=== PATIENT | female | born 1985 ===

== ENCOUNTER → 2016-12-06 | Outpatient (CLI) | payer BC ==
[2016-12-06 12:18] LABS: Glucose 3 Hour, Gest 77 mg/dL
== END | disposition home or self-care (01) ==
LOC: LABWHC1 07:29
PROVIDERS: ATTEND Obstetrics & Gynecology
DX: O99.810 Abnormal glucose complicating pregnancy (principal); Z3A.00 Weeks of gestation of pregnancy not specified
CPT/HCPCS: 36415; 82951; 82952

== ENCOUNTER 2017-02-07 06:27 | Inpatient (IN) | payer BC ==
[2017-02-07 06:51] LABS: Glucose,Whole Blood 111 mg/dL (75-99)
[2017-02-07] MEDS ORDERED: CARBOPROST TROMETHAMINE 250 MCG/ML 1 ML AMP IM PRN (07:49)
[2017-02-07] MEDS ORDERED: METHYLERGONOVINE 0.2 MG/ML 1 ML AMP IM PRN (07:49)
[2017-02-07] MEDS ORDERED: LIDOCAINE 1% (PF) 10 MG/ML (30 ML SDV) SQ PRN (07:49)
[2017-02-07] MEDS ORDERED: TERBUTALINE 1 MG/ML VIAL SQ PRN (07:49)
[2017-02-07] MEDS ORDERED: OXYTOCIN 10 UNIT/ML 1 ML VIAL IM PRN (07:49)
[2017-02-07] MEDS ORDERED: PENICILLIN G POTASSIUM 5,000,000 UNIT in DEXTROSE 5% IN WATER 100 ML IV STA ×2 (07:59)
[2017-02-07] MEDS ORDERED: OXYTOCIN 30 UNITS/500 ML NS 30 UNIT in SALINE 1 500ML.BAG IV SCH (08:00)
[2017-02-07 08:24] LABS: Basophils # (A) 0.1 k/uL (0-0.2); Basophils % (A) 0 %; CH 25.6; CHCM 32.2; Eosinophils # (A) 0.1 k/uL (0-0.7); Eosinophils % (A) 1 %; HCT 36.5 % (34.0-46.0); HDW 3.15; HGB 12.2 gm/dL (11.4-16.0); Hypochromasia Slight; Luc # (Auto) 0.17; Luc % (Auto) 2; Lymphocytes # (A) 1.3 k/uL (1.0-4.8); Lymphocytes % (A) 12 %; MCH 26.6 pg (25.0-35.0); MCHC 33.4 g/dL (31.0-37.0); MCV 79.7 fL (80.0-100.0); Mean Platelet Volume 8.4; Monocytes # (A) 0.4 k/uL (0-1.0); Monocytes % (A) 4 %; Neutrophils # (A) 9.2 k/uL (1.3-7.7); Neutrophils % (A) 82 %; RBC 4.58 m/uL (3.80-5.40); RDW 15.6 % (11.5-15.5); WBC 11.2 k/uL (3.8-10.6); WBC (Perox) 12.23
[2017-02-07 08:25] VITALS: BMI 41.9
[2017-02-07 08:39] LABS: Glucose,Whole Blood 97 mg/dL (75-99)
[2017-02-07] MEDS ORDERED: BUPIVACAINE (PF) 0.25% 30 ML VIAL ONE ×2 (10:03)
[2017-02-07] MEDS ORDERED: SODIUM CHLORIDE 0.9% 100 ML BAG ONE ×2 (10:03)
[2017-02-07] MEDS ORDERED: fentaNYL (PF) 50 MCG/ML 5 ML AMP ONE ×2 (10:03)
[2017-02-07] MEDS: LACTATED RINGERS 1,000 ML IV SCH ×2 (10:35→20:29)
[2017-02-07 10:41] LABS: Glucose,Whole Blood 83 mg/dL (75-99)
--- NOTE | 2017-02-07 10:59 | P.HPOB ---
History of Present Illness H&P Date: 02/07/17 Chief Complaint: 39-2/7 weeks, gestational diabetes, early labor The patient is a 31-year-old 6 para 1051 admitted at 39-2/7 weeks by good dating parameters. She is admitted in early active labor with all signs reassuring. Her has been uncomplicated by gestational diabetes which has been well controlled with diet. She additionally had several abscesses of the left breast which are managed by Dr. Massey. She is also known to be rubella nonimmune and was found to be hypothyroid which has been medicated during the . testing has been reassuring. Group B strep status is positive. Obstetrical history: 6 para 1051 with 1 term vaginal delivery without complications. She has had 4 spontaneous miscarriages, one of which required D& C, as well as one early elective interruption of . Current statistics are listed in history present illness. EDC of 02/11/2017 was established by last menstrual period and confirmed by second trimester ultrasound. Laboratory workup demonstrates a blood type of A+ with a negative antibody screen. Rubella status is nonimmune. All other laboratory workup was within normal limits. Early Glucola was elevated and followed up by a normal three-hour glucose tolerance test. Second trimester Glucola was elevated and followed up by an abnormal three-hour glucose tolerance test. Group B strep status is positive. Gynecologic history: is unremarkable with no history of any infections to include STDs. Review of Systems Review of systems is confined to history of present illness. Past Medical History Past Medical History: No Reported History Additional Past Medical History / Comment(s): Gestational diabetes, thyroid disorder History of Any Multi-Drug Resistant Organisms: None Reported Additional Past Surgical History / Comment(s): skull reconstruction in childhood , D&c 2013,I&D left breast x2 Past Anesthesia/Blood Transfusion Reactions: No Reported Reaction Past Psychological History: Anxiety, Depression Additional Psychological History / Comment(s): on zoloft after her first x 8 months for depression Smoking Status: Never smoker Past Alcohol Use History: None Reported Past Drug Use History: None Reported - Past Family History Mother Family Medical History: No Reported History Medications and Allergies Home Medications Medication Instructions Recorded Confirmed Type Rnq-Okxr-Xqovd Acid 1 cap PO DAILY 08/23/16 02/07/17 History [-U Capsule] Thyroid,Pork [Nature-Throid] 120 mg PO DAILY 02/07/17 02/07/17 History Allergies Allergy/AdvReac Type Severity Reaction Status Date / Time hazelnut Allergy Unknown Verified 02/07/17 06:37 Exam - Vital Signs Vital signs: Vital Signs Temp Pulse Resp BP Pulse Ox 02/07/17 06:54 97 F L 111 H 16 126/85 100 Intake and Output 02/06/17 02/07/17 02/07/17 22:59 06:59 14:59 Other: Weight 117.934 kg 117.934 kg Patient Weight 02/08/17 06:59 Weight 117.934 kg In general, this is a well-developed, moderately obese white female in no acute distress. Her heart has a regular rhythm and rate without murmur. Her lungs are clear to auscultation bilaterally in all hernandez. Her abdomen is gravid, nondistended, has normal active bowel sounds, is soft, nontender, and without any palpable masses aside from uterine fundus. Her extremities are without any cyanosis, clubbing, or significant edema and are nontender to palpation bilaterally. Digital cervical examination performed by the nurse recently has found her cervix to be 6+ centimeters dilated, 80% effaced, with the vertex in presentation at -2 station. The bag of lai currently left intact and attempt to get adequate antibiotic prophylaxis for group B strep on board for the infant. Results Result Diagrams: 02/07/17 08:15 Abnormal Lab Results - Last 24 Hours (Table) 02/07/17 02/07/17 Range/Units 06:40 08:15 WBC 11.2 H (3.8-10.6) k/uL MCV 79.7 L (80.0-100.0) fL RDW 15.6 H (11.5-15.5) % Neutrophils # 9.2 H (1.3-7.7) k/uL POC Glucose (mg/dL) 111 H (75-99) mg/dL Assessment and Plan (1) Group B streptococcal infection in Status: Acute (2) Active labor at term Status: Acute Plan: The patient has been admitted for management of labor. She will continue to have close maternal and surveillance and expectant management will be practiced. An epidural catheter has been placed for analgesia. She had antibiotic prophylaxis started immediately upon admission for group B strep positivity. We will leave the bag of water intact as long as possible in order to attempt to affect 4 hours of antibiotics prior to delivery.
[2017-02-07] MEDS: PENICILLIN G POTASSIUM 2,500,000 UNIT in DEXTROSE 5% IN WATER 100 ML IV SCH ×6 (12:15→20:29)
[2017-02-07 12:37] LABS: Hemoglobin A1C 5.9 % (4.2-6.1)
[2017-02-07] MEDS ORDERED: diphenhydrAMINE 50 MG CAP PO PRN (17:34)
[2017-02-07] MEDS ORDERED: SIMETHICONE 80 MG CHEWABLE PO PRN (17:34)
[2017-02-07] MEDS ORDERED: ACETAMINOPHEN TAB 325 MG TAB PO PRN (17:34)
[2017-02-07] MEDS ORDERED: LANOLIN CREAM 5 GM TUBE TOPICAL PRN (17:34)
[2017-02-07] MEDS ORDERED: BENZOCAINE/MENTHOL SPRAY 1 GM/SPRAY AEROSOL TOPICAL PRN (17:34)
[2017-02-07] MEDS ORDERED: MEASLES-MUMPS-RUBELLA VACC/PF 12,500 UNIT/0.5 ML VIAL SQ ONE (17:34)
[2017-02-07] MEDS ORDERED: HYDROCORTISONE 2.5% RECTAL CREAM 30 GM TUBE RECTAL PRN (17:34)
[2017-02-07] MEDS ORDERED: ZOLPIDEM 5 MG TAB PO PRN (17:34)
[2017-02-07] MEDS ORDERED: diphenhydrAMINE 50 MG/ML 1 ML VIAL IVP PRN ×2 (17:34)
[2017-02-07] MEDS ORDERED: WITCH HAZEL 1 EACH MED..PAD TOPICAL PRN (17:34)
[2017-02-07] MEDS ORDERED: diphenhydrAMINE 25 MG CAP PO PRN (17:34)
[2017-02-07] MEDS ORDERED: Acetaminophen-Codeine 300-30mg TAB PO PRN (17:34)
--- NOTE | 2017-02-07 17:34 | P.PROBDLV ---
Vaginal Delivery Note - . Vaginal Delivery Note: This is a 31-year-old white female 6 para 1041 EDC 02/11/2017 at 39-3/7 weeks' gestation. Patient presented with regular uterine contractions and noted cervical change. Her was remarkable for gestational diabetes, diet controlled, and rubella status nonimmune. Please see dictated history and physical for details. Group B strep cultures were also noted to be positive. Patient was admitted, artificial amniorrhexis revealed meconium-stained fluid. Penicillin G prophylaxis was started, and a total of 3 doses were given. Oxytocin augmentation was started and titrated per hospital protocol. Patient progressed well through the first stage of labor and was judged to be completely dilated at 1659 hrs. She was coached in terms of proper like positioning, and the perineal body was prepped and draped in usual sterile fashion. Infant's head delivered occiput anterior and the infant restituted accordingly. There was a nuchal cord 1 that was reduced on the perineal body. The left shoulder was delivered with the aid of suprapubic pressure as well as Leonela maneuver. The oropharynx, nasopharynx, and external nares were bulb suctioned on the perineal body. Patient was officially delivered of a liveborn female infant at 1711 hrs. Umbilical cord was doubly clamped and ligated, she was handed to waiting nurses for evaluation where scores of 8 and 9 at one and 5 minutes respectively were given. The placenta delivered spontaneously, it was inspected and noted to be meconium- stained, but intact with trivascular cord. There was calcification noted around the edge. The uterus was massaged. Inspection now of the cervix, vagina , perineum, periurethral and perirectal areas revealed a small first-degree perineal laceration. This was repaired in the usual fashion using 3-0 Vicryl suture for excellent reapproximation. All sponge needle and enhancement counts are correct at the end of the procedure. Total estimated blood loss 300 mL's. weighed 4365 g or 9 lbs. 10 oz. The patient and her family were allowed to begin the bonding experience in the LDR.
[2017-02-07] MEDS: IBUPROFEN 600 MG TAB PO PRN (20:29)
[2017-02-07] MEDS: SENNOSIDES-DOCUSATE SODIUM 1 EACH TAB PO SCH (20:30)
[2017-02-08] MEDS: SENNOSIDES-DOCUSATE SODIUM 1 EACH TAB PO SCH (09:44)
[2017-02-08] MEDS: IBUPROFEN 600 MG TAB PO PRN (09:44)
[2017-02-08 10:08] VITALS: RESP 18
--- NOTE | 2017-02-08 12:18 | P.DS ---
Providers Date of admission: 02/07/17 07:46 Expected date of discharge: 02/08/17 Attending physician: Trent Anthony Primary care physician: Stated None Hospital Course: This is a 31-year-old white female 6 para 1051 EDC 02/11/2017 who was admitted at 39-3/7 weeks in spontaneous active labor. was remarkable for gestational diabetes, diet controlled, as well as rubella status nonimmune and positive group B strep. Please see my dictated history and physical for details. Blood sugars on admission were normal. Artificial amniorrhexis revealed meconium-stained fluid. Oxytocin was started and titrated per hospital protocol. Epidural was placed per her request. She went on to deliver a liveborn female infant with scores of 8 and 9 at one and 5 minutes respectively. Infant weighed 4365 g or 9 lbs. 10 oz. Please see my dictated delivery note for details. This morning the patient is doing well. She is voiding, ambulate and passing flatus without difficulty. Vital signs are stable and she is afebrile. Fundus is firm and in the midline, symmetric and 18 week size. Extremities are negative for edema. Blood pressures have not been abnormal, blood sugars are not rechecked. Breast-feeding is going well. is doing well. Patient is judged to be in very good condition for discharge home. Patient is being discharged home in very good condition. She will follow-up in the office with me in 6 weeks. I have reminded her no intercourse, tampons or douching. She will use [id number] Advil or Aleve as needed for pain. I' ve asked her to call with any fevers shakes or chills, foul smelling or copious lochia, with the passage of large blood clots, with any pain not alleviated by [id number] products, or indeed with any concerns. will follow-up with reproductive endocrinologist as recommended. Patient Condition at Discharge: Good Plan - Discharge Summary Discharge Medication List Vhb-Gvgp-Nadru Acid [-U Capsule] 1 cap PO DAILY 08/23/16 [ History] Thyroid,Pork [Nature-Throid] 120 mg PO DAILY 02/07/17 [History] Follow up Appointment(s)/Referral(s): Wendy Valencia MD [STAFF PHYSICIAN] - 6 Weeks Discharge Disposition: HOME SELF-CARE
[2017-02-08 17:34] VITALS: BP 135/68; PULSE 80; TEMP 98
== END 2017-02-08 18:41 | disposition home or self-care (01) | DRG 774 ==
LOC: FBPOP 06:27 → 4FBP 07:46
PROVIDERS: ADMIT Obstetrics & Gynecology; ATTEND Obstetrics & Gynecology
PROC: 10E0XZZ Delivery of Products of Conception, External Approach (ICD-10-PCS; principal; 2017-02-07)
PROC: 0HQ9XZZ Repair Perineum Skin, External Approach (ICD-10-PCS; 2017-02-07)
PROC: 3E0134Z Introduction of Serum, Toxoid and Vaccine into Subcutaneous Tissue, Percutaneous Approach (ICD-10-PCS; 2017-02-07)
PROC: 00HU33Z Insertion of Infusion Device into Spinal Canal, Percutaneous Approach (ICD-10-PCS; 2017-02-07)
PROC: 3E0R3CZ (ICD-10-PCS; 2017-02-07)
DX: O24.420 Gestational diabetes mellitus in childbirth, diet controlled (principal); O98.82 Other maternal infectious and parasitic diseases complicating childbirth; E03.9 Hypothyroidism, unspecified; O99.284 Endocrine, nutritional and metabolic diseases complicating childbirth; O77.0 Labor and delivery complicated by meconium in amniotic fluid; O69.81X0 Labor and delivery complicated by cord around neck, without compression, not applicable or unspecified; B95.1 Streptococcus, group B, as the cause of diseases classified elsewhere; O70.0 First degree perineal laceration during delivery; Z37.0 Single live birth; Z3A.39 39 weeks gestation of pregnancy; Z23 Encounter for immunization; Z79.899 Other long term (current) drug therapy; Z86.59 Personal history of other mental and behavioral disorders
CPT/HCPCS: 59025; 83036; 85025; 88307; 99213

== ENCOUNTER 2018-07-07 13:10 | Outpatient (CLI) | payer BC ==
[2018-07-07 15:39] VITALS: BP 131/70; RESP 18
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
== END 2018-07-07 14:50 | disposition home or self-care (01) ==
LOC: FBPOP 13:10
PROVIDERS: ATTEND Obstetrics & Gynecology
DX: O26.93 Pregnancy related conditions, unspecified, third trimester (principal); Z3A.00 Weeks of gestation of pregnancy not specified
CPT/HCPCS: 99213

== ENCOUNTER 2018-09-26 06:10 | Inpatient (IN) | payer BC ==
[2018-09-26] MEDS ORDERED: METHYLERGONOVINE 0.2 MG/ML 1 ML AMP IM PRN (06:39)
[2018-09-26] MEDS ORDERED: CARBOPROST TROMETHAMINE 250 MCG/ML 1 ML AMP IM PRN (06:39)
[2018-09-26] MEDS ORDERED: OXYTOCIN 10 UNIT/ML 1 ML VIAL IM PRN (06:39)
[2018-09-26] MEDS ORDERED: LIDOCAINE 0.5% (PF) 5 MG/ML (50 ML SDV) SQ PRN (06:39)
[2018-09-26] MEDS ORDERED: TERBUTALINE 1 MG/ML VIAL SQ PRN (06:39)
[2018-09-26 06:48] LABS: Glucose,Whole Blood 103 mg/dL (75-99)
[2018-09-26] MEDS: LACTATED RINGERS 1,000 ML IV SCH ×2 (06:49→10:10)
[2018-09-26 07:06] LABS: Anisocytosis Slight; Basophils % (A) 0 %; Eosinophils # (A) 0.1 k/uL (0-0.7); Eosinophils % (A) 1 %; HCT 36.9 % (34.0-46.0); HGB 11.9 gm/dL (11.4-16.0); Lymphocytes # (A) 1.9 k/uL (1.0-4.8); Lymphocytes % (A) 24 %; MCH 25.7 pg (25.0-35.0); MCHC 32.2 g/dL (31.0-37.0); MCV 79.7 fL (80.0-100.0); Mean Platelet Volume 7.6; Microcytosis Slight; Monocytes # (A) 0.3 k/uL (0-1.0); Monocytes % (A) 4 %; Neutrophils # (A) 5.8 k/uL (1.3-7.7); Neutrophils % (A) 70 %; Platelet Count 243 k/uL (150-450); RBC 4.63 m/uL (3.80-5.40); WBC 8.3 k/uL (3.8-10.6)
[2018-09-26 07:17] VITALS: BMI 43.5
[2018-09-26] MEDS ORDERED: SODIUM CHLORIDE 0.9% 100 ML BAG ONE (07:35)
[2018-09-26] MEDS ORDERED: fentaNYL (PF) 50 MCG/ML 5 ML AMP ONE (07:35)
[2018-09-26] MEDS ORDERED: ROPIVACAINE 5MG/ML 20ML VIAL ONE (07:35)
--- NOTE | 2018-09-26 08:32 | P.HPOB ---
History of Present Illness H&P Date: 09/26/18 Chief Complaint: IUP 39 2/7 weeks, active labor This is a pleasant 33-year-old 8 para 2051 at 39-2/7 weeks that presents to labor and delivery with complaints of regular strong contractions. Estimated due date is 1128 based on last menstrual period. Patient has been receiving routine care with Dr. Rodriguez sent 7 weeks gestation. Patient does have a history of macrosomia with her prior weighing 9 lbs. 10 oz., in addition she has a history of gestational diabetes 2 along with this and is on insulin treatment itself next Patient has a blood type of A+, rubella immune, RPR nonreactive, hepatitis B surface antigen is negative, HIV negative, GBS negative Patient had an ultrasound done on 09 04 for size greater than dates, EFW 8 lbs. 0 oz. greater than the 97th percentile normal amniotic fluid was noted and infant was in vertex presentation. Review of Systems Constitutional: Denies chills, Denies fatigue, Denies fever Ears, nose, mouth and throat: Denies headache Cardiovascular: Reports leg edema Respiratory: Denies dyspnea Gastrointestinal: Denies constipation, Denies diarrhea, Denies nausea, Denies vomiting Genitourinary: Reports Past Medical History Past Medical History: No Reported History Additional Past Medical History / Comment(s): Gestational diabetes, thyroid disorder History of Any Multi-Drug Resistant Organisms: None Reported Additional Past Surgical History / Comment(s): skull reconstruction in childhood , D&c 2013,I&D left breast x2 Past Anesthesia/Blood Transfusion Reactions: No Reported Reaction Past Psychological History: Anxiety, Depression Additional Psychological History / Comment(s): on zoloft after her first x 8 months for depression Smoking Status: Never smoker Past Alcohol Use History: None Reported Past Drug Use History: None Reported - Past Family History Mother Family Medical History: No Reported History Medications and Allergies Home Medications Medication Instructions Recorded Confirmed Type Giv-Srcw-Sukyt Acid 1 cap PO DAILY 08/23/16 09/26/18 History [-U Capsule] Thyroid,Pork [Nature-Throid] 120 mg PO DAILY 02/07/17 09/26/18 History Sertraline [Zoloft] 12.5 mg PO DAILY 05/13/18 09/26/18 History Insulin Glargine,Hum.rec.anlog 1 100ml.bag IM TID 09/26/18 09/26/18 History [Lantus Solostar] Allergies Allergy/AdvReac Type Severity Reaction Status Date / Time hazelnut Allergy Unknown Verified 09/26/18 06:23 Exam Osteopathic Statement: *. No significant issues noted on an osteopathic structural exam other than those noted in the History and Physical/Consult. Vital Signs Temp Pulse Resp BP Pulse Ox 09/26/18 06:46 97.5 F L 84 16 135/77 99 09/26/18 06:40 97.5 F L 84 16 135/77 99 Intake and Output 09/25/18 09/26/18 09/26/18 22:59 06:59 14:59 Other: Weight 122.47 kg Targeted physical exam was performed on this date in general this is a well- nourished well-developed female in no acute distress, heart is known to have a regular rate and rhythm, lungs are clear to auscultation bilaterally abdomen is gravid, on cervical exam patient is noted to be 9 cm/80/-1 amniotomy was performed and clear fluid was obtained. heart tones were noted to be reassuring with contractions about every 2-5 minutes. Results Result Diagrams: 09/26/18 06:52 Abnormal Lab Results - Last 24 Hours (Table) 09/26/18 09/26/18 Range/Units 06:46 06:52 MCV 79.7 L (80.0-100.0) fL RDW 17.0 H (11.5-15.5) % POC Glucose (mg/dL) 103 H (75-99) mg/dL Assessment and Plan (1) Active labor at term Current Visit: No Status: Acute Code(s): FLY3490 - SNOMED Code(s): 71627495 (2) Gestational diabetes Current Visit: No Status: Acute Code(s): O24.419 - GESTATIONAL DIABETES MELLITUS IN , UNSP CONTROL SNOMED Code(s): 09641700 (3) Obesity Current Visit: No Status: Acute Code(s): E66.9 - OBESITY, UNSPECIFIED SNOMED Code(s): 272923660 Plan: We'll admit to labor and delivery with anticipation of spontaneous vaginal delivery this morning.
[2018-09-26] MEDS ORDERED: OXYTOCIN 20 UNITS/1000 ML NS 1,000 ML IV SCH ×2 (10:15→13:15)
[2018-09-26] MEDS ORDERED: ONDANSETRON 4 MG/2 ML VIAL ONE (12:00)
[2018-09-26] MEDS ORDERED: OXYTOCIN 10 UNIT/ML 1 ML VIAL ONE (12:00)
[2018-09-26] MEDS ORDERED: CITRIC ACID-SODIUM CITRATE 15 ML CUP PO ONE (12:00)
[2018-09-26] MEDS ORDERED: PHENYLEPHRINE-0.9% NACL SYG 1 MG/10 ML SYRINGE ONE (12:00)
[2018-09-26] MEDS ORDERED: METOCLOPRAMIDE 5 MG/ML 2 ML VIAL IVP PRN (13:07)
[2018-09-26] MEDS ORDERED: diphenhydrAMINE 50 MG CAP PO PRN (13:07)
[2018-09-26] MEDS ORDERED: NALOXONE 0.4 MG/ML 1 ML VIAL IV PRN (13:07)
[2018-09-26] MEDS ORDERED: diphenhydrAMINE 50 MG/ML 1 ML VIAL IVP PRN ×2 (13:07)
[2018-09-26] MEDS ORDERED: ONDANSETRON 4 MG/2 ML VIAL IVP PRN (13:07)
[2018-09-26] MEDS ORDERED: HYDROcodone/APAP 7.5-325MG 1 EACH TAB PO PRN (13:07)
[2018-09-26] MEDS ORDERED: ZOLPIDEM 5 MG TAB PO PRN (13:07)
[2018-09-26] MEDS ORDERED: ACETAMINOPHEN TAB 325 MG TAB PO PRN (13:07)
[2018-09-26] MEDS ORDERED: LANOLIN CREAM 5 GM TUBE TOPICAL PRN (13:07)
[2018-09-26] MEDS ORDERED: ACETAMINOPHEN IV (For NPO) 1,000 MG in EMPTY BAG 1 BAG IVPB ONE (13:07)
[2018-09-26] MEDS ORDERED: diphenhydrAMINE 25 MG CAP PO PRN (13:07)
--- NOTE | 2018-09-26 13:07 | P.OP ---
Date of Procedure: 09/26/18 Preoperative Diagnosis: IUP at 39-2/7 weeks, gestational diabetes insulin controlled, arrest of descent Postoperative Diagnosis: Same Procedure(s) Performed: Primary low transverse section with tubal ligation Anesthesia: epidural Surgeon: Zenaida Haynes [employer] Developer #1: Tamika Vides Estimated Blood Loss (ml): 400 IV fluids (ml): 1,100 Urine output (ml): 400 Pathology: other (Placenta, bilateral segment of fallopian tubes) Condition: stable Disposition: PACU Indications for Procedure: Arrest of descent, patient was noted to be 9 cm -1 station for greater than 2 hours patient also desires tubal ligation as she is completed her family planning. Operative Findings: Normal uterus tubes and ovaries were appreciated Description of Procedure: The patient was prepped and draped in the usual fashion after spinal anesthesia was administered by anesthesia. A Pfannenstiel incision was made and extended of the abdominal cavity without difficulty. The bladder peritoneum was elevated and incised and reflected distally. A 2 cm incision was made in the transverse plane of the lower uterine segment to enter the uterus at which time clear fluid was noted. The incision was extended in both directions using the bandage scissors. The head was encountered within the field and delivered up and through the incision where the nose and mouth were thoroughly suctioned. Remainder of the infant was delivered onto the surgical field where the cord was doubly clamped, cut, and the infant was passed for resuscitative measures with weight 9-6 and Apgars 8-9 as noted above. The placenta was delivered manually, intact, and was grossly normal with a grossly normal three- vessel cord. The uterus was exteriorized and the interior cavity of the uterus swept of any remaining placental and membranous fragments with a laparotomy sponge. The margins of the incision were grasped with allis clamps and the incision closed in 2 layers. First layer was a running locking layer of 0 vicryl from margin to margin followed by a second layer of imbricating 0 vicryl from margin to margin. Any small points of bleeding were then made hemostatic with the Bovie. Once hemostasis was achieved, the posterior cul-de-sac was suctioned with a guard and the uterine and ovarian findings are as noted above. The uterus was replaced within the abdominal cavity and the gutters swept of any remaining blood fluid or clot. The incision was again reexamined and hemostasis was noted to be excellent. Any small point of bleeding were made hemostatic with the Bovie. Once hemostasis was achieved the parietal peritoneum was loosely reapproximated. The layer of muscles were examined and made hemostatic with the Bovie. Attention was then turned to the fascia which was closed with 2 running stitches of 0 Vicryl proceeding from the lateral margins to the midpoint. The subcutaneous tissues were irrigated, made hemostatic with the Bovie, and reapproximated with a running stitch of 30 plain vicryl. The skin was reapproximated with 4-0 vicryl. Estimated blood loss for the case was approximately 400 mL. All sponge instrument and needle counts are correct. There were no complications. The patient tolerated the procedure well and proceeded to the recovery room in stable condition. Both mother and infant are resting comfortably in recovery. girl delivered at 1222, weight 9 lbs. 6 oz.
[2018-09-26] MEDS ORDERED: IBUPROFEN IV 800 MG in SODIUM CHLORIDE 0.9% 250 ML IV ONE (13:08)
[2018-09-26] MEDS ORDERED: LACTATED RINGERS 1,000 ML IV SCH (13:15)
[2018-09-26 17:46] LABS: Hemoglobin A1C 5.9 % (4.0-6.0)
[2018-09-26] MEDS: SENNOSIDES-DOCUSATE SODIUM 1 EACH TAB PO SCH (19:30)
[2018-09-27] MEDS: HYDROcodone/APAP 5-325MG 1 EACH TAB PO PRN ×3 (03:03→18:00)
[2018-09-27 07:01] LABS: Anisocytosis Slight; Basophils % (A) 0 %; Eosinophils % (A) 0 %; HCT 32.9 % (34.0-46.0); HGB 10.4 gm/dL (11.4-16.0); Hypochromasia Slight; Lymphocytes # (A) 1.1 k/uL (1.0-4.8); Lymphocytes % (A) 12 %; MCH 25.7 pg (25.0-35.0); MCHC 31.7 g/dL (31.0-37.0); MCV 81.1 fL (80.0-100.0); Monocytes # (A) 0.3 k/uL (0-1.0); Monocytes % (A) 3 %; Neutrophils # (A) 7.8 k/uL (1.3-7.7); Neutrophils % (A) 84 %; Platelet Count 195 k/uL (150-450); RBC 4.06 m/uL (3.80-5.40); RDW 17.1 % (11.5-15.5); WBC 9.3 k/uL (3.8-10.6)
[2018-09-27] MEDS: SENNOSIDES-DOCUSATE SODIUM 1 EACH TAB PO SCH ×2 (08:50→19:40)
[2018-09-27] MEDS: THYROID, PORK 30 MG TAB PO SCH (08:50)
[2018-09-27] MEDS ORDERED: SERTRALINE 25 MG TAB PO SCH (09:00)
[2018-09-27] MEDS: IBUPROFEN 600 MG TAB PO PRN ×3 (09:04→21:44)
[2018-09-27] MEDS: SERTRALINE 100 MG TAB PO SCH (11:50)
[2018-09-27] MEDS ORDERED: PRENATAL VIT-IRON-FOLIC ACID 1 EACH CAP PO SCH (12:00)
--- NOTE | 2018-09-27 13:02 | P.PNOBGPC ---
Subjective - Subjective Principal diagnosis: POD 1 LTCS TL Interval history: Patient did well overnight. She is ambulating and voiding without difficulty. She is tolerating a regular diet without nausea or vomiting. She denies pain this morning. She is breast-feeding without difficulty. She states her lochia is minimal. Patient reports: Reports appetite normal, Reports voiding normally, Reports pain well controlled, Reports ambulating normally [place]: doing well, nursing well Objective - Vital Signs Latest vital signs: Vital Signs Temp Pulse Resp BP Pulse Ox 09/27/18 11:58 98.2 F 80 16 130/76 99 09/27/18 09:00 98.1 F 76 17 127/75 99 09/27/18 04:00 102 H 16 133/77 09/27/18 00:00 92 16 121/63 09/26/18 20:00 98.1 F 81 16 136/85 09/26/18 16:00 98.2 F 80 16 130/72 99 09/26/18 15:00 75 17 127/72 99 09/26/18 14:30 79 16 119/63 100 09/26/18 14:00 76 17 148/68 100 09/26/18 13:45 77 16 143/65 100 09/26/18 13:30 80 16 132/71 100 09/26/18 13:06 75 16 123/62 99 Intake and Output 09/26/18 09/27/18 09/27/18 22:59 06:59 14:59 Intake Total 100 600 Output Total 800 700 Balance -700 -700 600 Intake: Oral 100 600 Output: Urine 800 700 Uretheral (Wong) 300 Other: # Voids 1 1 - Exam Extremities: Present: normal Abdomen: Present: normal appearance, soft Incision: Present: normal, dry, intact Uterus: Present: normal, firm - Labs Labs: Abnormal Lab Results - Last 24 Hours (Table) 09/27/18 Range/Units 06:33 Hgb 10.4 L (11.4-16.0) gm/dL Hct 32.9 L (34.0-46.0) % RDW 17.1 H (11.5-15.5) % Neutrophils # 7.8 H (1.3-7.7) k/uL Assessment and Plan (1) Active labor at term Current Visit: No Status: Acute Code(s): [id number] - SNOMED Code(s): 46753826 (2) Gestational diabetes Current Visit: No Status: Acute Code(s): O24.419 - GESTATIONAL DIABETES MELLITUS IN , UNSP CONTROL SNOMED Code(s): 59818257 (3) Obesity Current Visit: No Status: Acute Code(s): E66.9 - OBESITY, UNSPECIFIED SNOMED Code(s): 050835865 Plan: Patient is doing well . We'll continue routine postoperative care and anticipate discharge home tomorrow.
[2018-09-27] MEDS ORDERED: SIMETHICONE 80 MG CHEWABLE PO PRN (21:35)
[2018-09-28] MEDS: HYDROcodone/APAP 5-325MG 1 EACH TAB PO PRN ×2 (01:00→09:52)
[2018-09-28] MEDS: IBUPROFEN 600 MG TAB PO PRN (06:40)
--- NOTE | 2018-09-28 06:54 | P.PN ---
Progress Note - Text Progress Note Date: 09/27/18 patient evaluated following epidural placment for labor used for section 5 mg Morphine placed into epidural space patient denied any complaints primary team to follow
--- NOTE | 2018-09-28 07:39 | P.DS ---
Providers Date of admission: 09/26/18 06:35 Expected date of discharge: 09/28/18 Attending physician: Wendy Valencia Primary care physician: Stated None Hospital Course: This is a 33-year-old white female 8 para 2051 EDC 10/01/2018 at 39-2/7 weeks' gestation. Patient presented in active spontaneous labor. Her is significant for gestational diabetes, on insulin. Plan was for induction tomorrow for suspected large for gestational age. Please see dictated history and physical for details. Blood sugar on admission 103. Artificial amniorrhexis revealed clear fluid. Patient progressed through labor but had arrest of descent in the second stage. Decision was made to proceed with . She underwent a primary low transverse section with tubal ligation. She delivered a liveborn female with scores of 7 and 9 at one and 5 minutes respectively. weighed 9 lbs. 6 oz. or 4240 g. Please see dictated delivery note for details. This morning the patient is doing well. She is voiding, ambulating and passing flatus without difficulty. Vital signs are stable and she is afebrile. Incision is clean and dry, intact, Steri-Strips applied. Extremities are negative for edema. Breasts are not engorged. Fundus is firm and in the midline, symmetric and 18 week size. Extremities are negative for edema. [place] infant is doing well. Patient is judged to be in very good condition for discharge home. She will follow-up with me in the office in 2 weeks for incision check. I have reminded her no intercourse, tampons or douching. She will use over-the- counter Advil or Aleve as needed for pain. She will continue taking her vitamin daily. I've asked her to call me with any fevers shakes or chills, foul smelling or copious lochia, with the passage of large blood clots, with any pain not alleviated by [id number]-ulrqbrt products, or indeed with any concerns. Patient Condition at Discharge: Good Plan - Discharge Summary New Discharge Prescriptions: No Action Zvf-Yrov-Zcxlv Acid [-U Capsule] 1 cap PO DAILY Thyroid,Pork [Nature-Throid] 120 mg PO DAILY Sertraline [Zoloft] 100 mg PO DAILY Insulin Glargine,Hum.rec.anlog [Lantus Solostar] 1 100ml.bag IM TID Discharge Medication List Tco-Nugq-Evvbc Acid [-U Capsule] 1 cap PO DAILY 08/23/16 [ History] Thyroid,Pork [Nature-Throid] 120 mg PO DAILY 02/07/17 [History] Sertraline [Zoloft] 100 mg PO DAILY 05/13/18 [History] Insulin Glargine,Hum.rec.anlog [Lantus Solostar] 1 100ml.bag IM TID 09/26/18 [ History] Follow up Appointment(s)/Referral(s): Wendy Valencia MD [STAFF PHYSICIAN] - 2 Weeks Discharge Disposition: HOME SELF-CARE
[2018-09-28] MEDS: SERTRALINE 100 MG TAB PO SCH (09:54)
[2018-09-28] MEDS: THYROID, PORK 30 MG TAB PO SCH (09:54)
[2018-09-28] MEDS: SENNOSIDES-DOCUSATE SODIUM 1 EACH TAB PO SCH (09:56)
[2018-09-28 11:30] VITALS: BP 128/75; PULSE 88; RESP 18; TEMP 98
== END 2018-09-28 14:24 | disposition home or self-care (01) | DRG 784 ==
LOC: FBPOP 06:10 → 4FBP 06:35
PROVIDERS: ADMIT Obstetrics & Gynecology Obstetrics; ATTEND Obstetrics & Gynecology
DX: O62.1 Secondary uterine inertia (principal); Z68.41 Body mass index [BMI] 40.0-44.9, adult; O24.424 Gestational diabetes mellitus in childbirth, insulin controlled; E66.9 Obesity, unspecified; O99.214 Obesity complicating childbirth; Z37.0 Single live birth; Z3A.39 39 weeks gestation of pregnancy; Z30.2 Encounter for sterilization
CPT/HCPCS: 59025; 83036; 85025; 86850; 86900; 86901; 88302; 88307; 99213

== ENCOUNTER → 2020-08-21 | Outpatient (CLI) | payer BC ==
--- NOTE | 2020-08-21 11:43 | US ---
EXAMINATION TYPE: US abdomen complete DATE OF EXAM: 08/21/2020 COMPARISON: NONE CLINICAL HISTORY: 35-year-old female R10.10 Upper abd pain R11.0 Nausea. Intermittent epigastric pain , nausea, vomiting x years, worse now TECHNIQUE: Multiple sonographic images of the abdomen are obtained. FINDINGS: EXAM MEASUREMENTS: Liver Length: 17.2 cm Gallbladder Wall: 0.3 cm CBD: 0.5 cm Spleen: 12.8 cm Right Kidney: 12.7 x 5.2 x 6.2 cm Left Kidney: 12.9 x 5.2 x 5.4 cm Pancreas: Pancreatic head and tail obscured by overlying bowel gas Liver: Size is upper limits of normal; Increased attenuation, decreased visualization of vessels sug gestive of fatty infiltrate. This secondarily limits assessment for focal lesions. Gallbladder: Few echogenic, shadowing foci seen within Evidence for sonographic Best's sign: No CBD: wnl Spleen: wnl Right kidney: No hydronephrosis. Left kidney: No hydronephrosis. There is a 3.6 cm focal area of hypoechoic contour lobulation at the midpole. Upper IVC: wnl Abd Aorta: wnl IMPRESSION: 1. Borderline hepatomegaly (17.2 cm) with severe hepatic steatosis. 2. Cholelithiasis without ancillary findings of acute cholecystitis. 3. No biliary ductal dilatation. 4. A 3.6 cm focal area of contour lobulation at the left renal midpole probably represents a dromedar y hump rather than a mass. 3 month follow-up renal ultrasound recommended to reassess this area.
== END | disposition home or self-care (01) ==
LOC: RADUSWWP 08:54
PROVIDERS: ATTEND Family Medicine
DX: K76.0 Fatty (change of) liver, not elsewhere classified (principal); K80.20 Calculus of gallbladder without cholecystitis without obstruction; R16.0 Hepatomegaly, not elsewhere classified; R11.0 Nausea
CPT/HCPCS: 76700

== ENCOUNTER → 2020-10-13 | Outpatient (CLI) | payer BC | END | disposition home or self-care (01) | LOC: LABPAT 14:27 | PROVIDERS: ATTEND Surgery | DX: Z01.818 Encounter for other preprocedural examination (principal); Z20.828 Contact with and (suspected) exposure to other viral communicable diseases | CPT/HCPCS: U0003; C9803 ==

== ENCOUNTER → 2020-10-18 | Outpatient (CLI) | payer BC ==
[2020-10-18 12:41] LABS: Albumin 4.6 g/dL (3.5-5.0); Bilirubin, Delta 0.2 mg/dL (0.0-0.2); Bilirubin,Unconjugated 0.2 mg/dL (0.0-1.1); Total Bilirubin 0.4 mg/dL (0.2-1.3); Total Protein 7.5 g/dL (6.3-8.2)
== END | disposition home or self-care (01) ==
LOC: LABPAT 11:30
PROVIDERS: ATTEND Surgery
DX: Z01.818 Encounter for other preprocedural examination (principal); K80.20 Calculus of gallbladder without cholecystitis without obstruction
CPT/HCPCS: 80076; 93005

== ENCOUNTER 2020-10-20 10:39 | Day surgery (SDC) | payer BC ==
[2020-10-18 10:24] VITALS: BMI 43.5
[~2020-10-20 10:39] MED LIST: DEXAMETHASONE SOD PHOSPHATE 4 MG/ML 1 ML VIAL IV ONE; HEPARIN SODIUM,PORCINE 5,000 UNIT/ML 1 ML VIAL SQ PRN; LACTATED RINGERS 1,000 ML IV SCH; MIDAZOLAM 2 MG/2 ML VIAL IV PRN; ONDANSETRON 4 MG/2 ML VIAL IVP ONE; SCOPOLAMINE 1.5MG/72HR PATCH TRANSDERM ONE; ceFAZolin 3 GM in SODIUM CHLORIDE 0.9% 100 ML IVPB PRN
[2020-10-20 11:09] VITALS: RESP 16
[2020-10-20] MEDS ORDERED: MIDAZOLAM 2 MG/2 ML VIAL ONE (11:43)
[2020-10-20] MEDS ORDERED: PROPOFOL 10 MG/ML 20 ML VIAL IV ONE (11:43)
[2020-10-20] MEDS ORDERED: HYDROmorphone (PF) 1 MG/ML ONE (11:43)
[2020-10-20] MEDS ORDERED: SUCCINYLCHOLINE CHLORIDE 100 MG/5 ML SYR IV ONE (11:43)
[2020-10-20] MEDS ORDERED: NEOSTIGMINE 1 MG/ML 10 ML VIAL ONE (11:43)
[2020-10-20] MEDS ORDERED: ROCURONIUM 10 MG/ML (10 ML VIAL) IV ONE (11:43)
[2020-10-20] MEDS ORDERED: GLYCOPYRROLATE 0.2 MG/ML 2 ML VIAL ONE (11:43)
[2020-10-20] MEDS ORDERED: LIDOCAINE 1% INJ 10MG/ML (20 ML MDV) ONE (11:43)
[2020-10-20] MEDS ORDERED: fentaNYL (PF) 50 MCG/ML 2 ML AMP ONE (11:43)
[2020-10-20] MEDS ORDERED: BUPIVACAINE-EPI 0.5%-1:200,000 10 ML VIAL SQ ONE (12:10)
--- NOTE | 2020-10-20 12:57 | P.OP ---
Date of Procedure: 10/20/20 Preoperative Diagnosis: Symptomatic cholelithiasis Postoperative Diagnosis: Symptomatic cholelithiasis Procedure(s) Performed: Laparoscopic cholecystectomy Anesthesia: MILO Surgeon: Farhad Hernandez Pathology: other (Gallbladder and contents) Condition: stable Disposition: same day Indications for Procedure: 35-year-old female presented to the surgery clinic with complaints of right upper quadrant pain that has been bothering her for a significant amount of time. She states that the pain has worsened and is worsened after meals. On recent ultrasound, patient was noted to have cholelithiasis. Plan is for laparoscopic cholecystectomy. Patient was excellent the risks, benefits and alternatives to the procedure and did provide consent prior to attending the operating suite. Operative Findings: Cholelithiasis at neck of gallbladder Description of Procedure: Patient presented to the operating suite and was placed in supine position on the operating table. Sedation was provided the patient underwent endotracheal intubation. The patient was then prepped and draped in regular sterile fashion. Local anesthetic was inserted at the infraumbilical incision site and incision was made. Dissection was carried to the fascia and the fascia was incised. A 12 mm trocar was placed and pneumoperitoneum was achieved. 3 additional ports were placed. All of these were 5 mm ports in the replaced in the subxiphoid location and 2 in the right upper quadrant. The patient was then appropriately positioned. The gallbladder was grasped and elevated superiorly. The infundibulum of the gallbladder was then retracted laterally. Dissection was carried to dissect the peritoneum from the gallbladder infundibulum. It was clear that a stone was stuck at the neck of the gallbladder. Careful dissection was performed and the cystic duct and cystic artery were visible. 2 clips were placed proximally on the cystic duct and one was placed distally and the cystic duct was ligated. Similarly, 2 clips were placed proximally on the cystic artery and one was placed distally and the cystic artery was ligated. The gallbladder was then dissected from the gallbladder fossa on the liver bed using cautery. The gallbladder was then placed in an Endo Catch bag and removed from the abdomen using the infra vocal incision site. Copious irrigation was placed in the right upper quadrant and suctioned. Hemostasis was noted to be maintained. No evidence of biliary leakage was noted. The infra umbilical incision site was closed under direct visualization using a 0 Vicryl suture and Ancelmo-Loida device. Pneumoperitoneum was released. All ports removed from the abdomen. All skin incision sites were closed with 4-0 Vicryl subcuticular suture. Sterile dressing was applied. The patient was awakened in the operating suite and taken to postanesthesia care unit in stable condition.
[2020-10-20 13:00] VITALS: TEMP 97
[2020-10-20] MEDS ORDERED: HYDROmorphone 0.5 MG/0.5 ML SYRINGE IVP ONE ×3 (13:15→13:56)
[2020-10-20] MEDS ORDERED: diphenhydrAMINE 50 MG/ML 1 ML VIAL IVP ONE (13:19)
[2020-10-20] MEDS ORDERED: KETOROLAC 15 MG/ML 1 ML VIAL IVP ONE (13:21)
[2020-10-20] MEDS ORDERED: LACTATED RINGERS 1,000 ML IV ONE (13:30)
[2020-10-20] MEDS ORDERED: ONDANSETRON 4 MG/2 ML VIAL IVP ONE (13:42)
[2020-10-20 14:59] VITALS: BP 141/90; PULSE 95
== END 2020-10-20 15:20 | disposition home or self-care (01) ==
LOC: OR 10:39
PROVIDERS: ATTEND Surgery
DX: K80.10 Calculus of gallbladder with chronic cholecystitis without obstruction (principal); E11.9 Type 2 diabetes mellitus without complications; E66.01 Morbid (severe) obesity due to excess calories; E07.9 Disorder of thyroid, unspecified; F32.9 Major depressive disorder, single episode, unspecified; Z68.41 Body mass index [BMI] 40.0-44.9, adult; Z79.899 Other long term (current) drug therapy; Z79.890 Hormone replacement therapy; Z98.890 Other specified postprocedural states; Z98.891 History of uterine scar from previous surgery; Z82.49 Family history of ischemic heart disease and other diseases of the circulatory system
CPT/HCPCS: 81025; 88304; 47562; J2250; J1200; J1644; J1100; J2710; J0690; J2405; J2001; J3010; J1170 ×2; J1885; J0330; J2704

== ENCOUNTER → 2021-11-01 | Outpatient (CLI) | payer BC ==
[~2021-11-01] MED LIST changes: +BAMLANIVIMAB (EUA) 700 MG, ETESEVIMAB (EUA) 1,400 MG in SODIUM CHLORIDE 0.9% 100 ML IVPB ONE; -DEXAMETHASONE SOD PHOSPHATE 4 MG/ML 1 ML VIAL IV ONE; -HEPARIN SODIUM,PORCINE 5,000 UNIT/ML 1 ML VIAL SQ PRN; -LACTATED RINGERS 1,000 ML IV SCH; -MIDAZOLAM 2 MG/2 ML VIAL IV PRN; -ONDANSETRON 4 MG/2 ML VIAL IVP ONE; +ONDANSETRON 4 MG/2 ML VIAL IVP STA; -SCOPOLAMINE 1.5MG/72HR PATCH TRANSDERM ONE; +SODIUM CHLORIDE 0.9% 50 ML IVPB ONE; +SODIUM CHLORIDE 0.9% 500 ML 500 ML in EMPTY BAG 1 BAG IV PRN; -ceFAZolin 3 GM in SODIUM CHLORIDE 0.9% 100 ML IVPB PRN
[2021-11-01 08:48] VITALS: RESP 16
[2021-11-01 09:44] VITALS: BP 106/59; PULSE 80; TEMP 97.7
== END ==
LOC: PROCWHC3 08:28
PROVIDERS: ATTEND Physician Assistant Medical
DX: U07.1 COVID-19 (principal); E66.9 Obesity, unspecified; E11.9 Type 2 diabetes mellitus without complications; Z68.41 Body mass index [BMI] 40.0-44.9, adult; Z91.018 Allergy to other foods
CPT/HCPCS: 96374; 96360; J2405; J3490; M0245

== ENCOUNTER → 2021-12-04 | Outpatient (CLI) | payer BC ==
[2021-12-04 18:13] LABS: Basophils # (A) 0.06 X 10*3/uL (0.00-0.10); Basophils % (A) 0.7 %; Eosinophils # (A) 0.21 X 10*3/uL (0.04-0.35); Eosinophils % (A) 2.5 %; HCT 39.4 % (37.2-46.3); HGB 12.8 g/dL (12.0-15.0); Lymphocytes # (A) 2.96 X 10*3/uL (0.90-5.00); Lymphocytes % (A) 35.7 %; MCH 27.6 pg (27.0-32.0); MCHC 32.5 g/dL (32.0-37.0); MCV 85.1 fL (80.0-97.0); Mean Platelet Volume 10.9 fL (9.5-12.2); Monocytes # (A) 0.41 X 10*3/uL (0.20-1.00); Monocytes % (A) 4.9 %; Neutrophils # (A) 4.63 X 10*3/uL (1.80-7.70); Neutrophils % (A) 55.8 %; Platelet Count 404 X 10*3/uL (140-440); RBC 4.63 X 10*6/uL (4.10-5.20); RDW 13.2 % (11.5-14.5)
[2021-12-04 18:29] LABS: % Iron Saturation 13.83 (12.00-45.00); ALT 27 U/L (8-44); AST 24 U/L (13-35); Albumin 4.6 g/dL (3.8-4.9); Albumin/Globulin Ratio 1.41 (1.60-3.17); Alkaline Phosphatase 69 U/L (41-126); BUN/Creat Ratio 19.49 Ratio (12.00-20.00); Blood Urea Nitrogen 15.2 mg/dL (9.0-27.0); Calcium 10.2 mg/dL (8.7-10.3); Carbon Dioxide 23.9 mmol/L (20.0-27.5); Chloride 100 mmol/L (96-109); Chol/HDL Ratio 4.32 Ratio; Ferritin 46.4 ng/mL (10.0-291.0); Globulin 3.3 g/dL (1.6-3.3); Glucose 132 mg/dL (70-110); Iron 64 ug/dL (50-170); Non-African American GFR(CKD) 99.2 (60.0-200.0); Potassium 4.2 mmol/L (3.5-5.5); Sodium 137 mmol/L (135-145); Total Iron Binding Capacity 461 ug/dL (228-460); Total Protein 7.8 g/dL (6.2-8.2)
[2021-12-04 20:11] LABS: Erythrocyte Sedimentation Rate 48 mm/Hr (0-20)
[2021-12-05 06:12] LABS: Rheumatoid Factor, Qnt <10 IU/mL (0-15)
[2021-12-05 13:24] LABS: HLA B27 NEGATIVE
== END | disposition home or self-care (01) ==
LOC: LABWHC1 13:01
PROVIDERS: ATTEND Physician Assistant Medical
DX: E11.9 Type 2 diabetes mellitus without complications (principal); E03.9 Hypothyroidism, unspecified; E61.1 Iron deficiency; E66.9 Obesity, unspecified; M13.0 Polyarthritis, unspecified; R60.0 Localized edema; Z86.16 Personal history of COVID-19
CPT/HCPCS: 36415; 80053; 80061; 82728; 83036; 83540; 83550; 84443; 85025; 85652; 86038; 86039; 86140; 86431; 86812

== ENCOUNTER → 2023-02-04 | Outpatient (CLI) | payer BC ==
--- NOTE | 2023-02-05 08:47 | MM ---
Reason for Exam: Screening (asymptomatic). Patient History: Menarche at age 14. First Full-Term at age 26. Last menstrual period: 01/25/2023 Risk Values: Chaya 5 year model risk: 0.3%. NCI Lifetime model risk: 9.2%. Tissue Density: The breast tissue is heterogeneously dense. This may lower the sensitivity of mammography. Findings: Analyzed By CAD. Electronic device overlies the upper right breast on the mediolateral oblique view. Focal asymmetries in the upper outer anterior right breast. Additional workup of this area is recommended at this time. Overall Assessment: Incomplete: need additional imaging evaluation, BI-RAD 0 Management: Diagnostic Mammogram of the right breast. A negative mammogram report should not preclude additional follow up of suspicious palpable abnormalities. Patient should continue monthly self breast exam. A clinical breast exam by your physician is recommended on an annual basis and results should be correlated with mammographic findings. Electronically signed and approved by: Jeffery Bautista D.O. Radiologis
== END | disposition home or self-care (01) ==
LOC: RADMAMWWP 11:28
PROVIDERS: ATTEND Obstetrics & Gynecology
DX: Z12.31 Encounter for screening mammogram for malignant neoplasm of breast (principal)
CPT/HCPCS: 77063; 77067

== ENCOUNTER → 2023-02-10 | Outpatient (CLI) | payer BC ==
--- NOTE | 2023-02-10 14:43 | MM ---
Reason for Exam: Additional evaluation requested from abnormal screening. Last screening mammogram was performed less than 1 month ago. Patient History: Menarche at age 14. First Full-Term at age 26. Risk Values: Chaya 5 year model risk: 0.3%. NCI Lifetime model risk: 9.2%. Tissue Density: Right: The breast tissue is heterogeneously dense. This may lower the sensitivity of mammography. Findings: Analyzed By CAD. 1.5 cm nodular density upper outer right breast 4 cm from the nipple approximately 10 to 11:00 position. Ultrasound is recommended. Overall Assessment: Incomplete: need additional imaging evaluation, BI-RAD 0 Management: Diagnostic Breast Ultrasound of the right breast. A clinical breast exam by your physician is recommended on an annual basis and results should be correlated with mammographic findings. This exam should not preclude additional follow-up of suspicious palpable abnormalities. Results were given to the patient verbally at the time of exam. Electronically signed and approved by: Enrico Obrien M.D. Radiologis
--- NOTE | 2023-02-10 15:20 | USB ---
Reason for Exam: Additional evaluation requested from abnormal screening. Patient History: Menarche at age 14. First Full-Term at age 26. Risk Values: Chaya 5 year model risk: 0.3%. NCI Lifetime model risk: 9.2%. Technique: Method: Targeted. Prior Study Comparison: 02/04/2023 Bilateral MG 3D screening mammo w/cad, [facility]. Findings: The upper outer quadrant of the right breast, the axilla of the right breast and the retroareolar of the right breast were scanned. Complex lesion right 11:00 position 4 cm from the nipple is partially cystic partially solid requires tissue diagnosis and measures 1.2 x 0.8 cm. No additional lesions seen. The axilla is free of adenopathy. Overall Assessment: Suspicious, BI-RAD 4 Management: Ultrasound Core Biopsy of the right breast. A clinical breast exam by your physician is recommended on an annual basis and results should be correlated with mammographic findings. This exam should not preclude additional follow-up of suspicious palpable abnormalities. Results were given to the patient verbally at the time of exam. Electronically signed and approved by: Enrico Obrien M.D. Radiologis
== END | disposition home or self-care (01) ==
LOC: RADMAMWWP 14:17
PROVIDERS: ATTEND Obstetrics & Gynecology
DX: R92.8 Other abnormal and inconclusive findings on diagnostic imaging of breast (principal)
CPT/HCPCS: 77061; 77065

== ENCOUNTER → 2023-02-26 | Day surgery (SDC) | payer BC ==
--- NOTE | 2023-02-26 12:55 | MM ---
Reason for Exam: Post Procedure Mammogram. Last screening mammogram was performed less than 1 month ago. Patient History: Menarche at age 14. First Full-Term at age 26. Risk Values: Chaya 5 year model risk: 0.3%. NCI Lifetime model risk: 9.2%. Prior Study Comparison: 02/04/2023 Bilateral MG 3D screening mammo w/cad, [facility]. 02/10/2023 Right MG 3D work up w/cad RT, [facility]. Tissue Density: Right: The breast tissue is heterogeneously dense. This may lower the sensitivity of mammography. Overall Assessment: Post procedure mammogram for marker placement Management: Post Mammogram for John Placement Electronically signed and approved by: Jame Vargas DO
--- NOTE | 2023-03-03 10:07 | USB ---
Risk Values: Chaya 5 year model risk: 0.3%. NCI Lifetime model risk: 9.2%. Prior Study Comparison: 02/04/2023 Bilateral MG 3D screening mammo w/cad, [facility]. 02/10/2023 Right US breast workup limited RT, [facility]. 02/10/2023 Right MG 3D work up w/cad RT, [facility]. Pathology Description: Location: 11 o'clock. Marker Left Behind. Cores: 6 Skin Nicks: 1 Gauge: 13 The procedure of ultrasound guided core biopsy was explained to the patient. Benefits, alternatives, and risks were discussed. An informed consent was then obtained. The patient was placed in supine positioning for imaging and for the procedure. The overlying skin was prepped and draped in usual sterile fashion. Lidocaine buffered with bicarbonate was used as anesthetic into the skin and subcutaneous tissue up to area of concern in the right breast. A raudel was made with surgical scalpel. Under ultrasound guidance, a 12-gauge vacuum assisted biopsy gun device was used to obtain 6 core samples. Following this, a biopsy clip was left in lesion. The patient tolerated the procedure well without any immediate complication. The patient was kept in the radiology department for short stay after the procedure and then discharged home in stable condition. Postprocedure mammogram: The patient was transferred to mammography for physician ordered post procedure mammogram for clip placement verification. Impression: Successful, uncomplicated ultrasound guided core biopsy of area of concern in the right breast, full pathology results to follow. Pathology Results: Result: Benign, Abscess. RIGHT BREAST, ELEVEN O'CLOCK, ULTRASOUND GUIDED NEEDLE CORE BIOPSY: Abscess with inflamed granulation tissue, histiocytes and fibrosis. Negative for neoplasm. Overall Assessment: Benign Management: Diagnostic Breast Ultrasound of the right breast in 3 months. Manage clinically with regard to abscess/infection. Electronically signed and approved by: Jame Vargas DO
== END ==
LOC: RADUSWWP 10:09
PROVIDERS: ATTEND Surgery
DX: N60.31 Fibrosclerosis of right breast (principal)
CPT/HCPCS: 88305; 77065; 19083; A4648

== ENCOUNTER → 2024-02-06 | Outpatient (CLI) | payer BC ==
[2024-02-06 15:49] LABS: Basophils # (A) 0.03 X 10*3/uL (0.00-0.10); Basophils % (A) 0.6 %; Eosinophils # (A) 0.08 X 10*3/uL (0.04-0.35); Eosinophils % (A) 1.6 %; HCT 37.7 % (37.2-46.3); Lymphocytes # (A) 1.71 X 10*3/uL (0.90-5.00); Lymphocytes % (A) 34.2 %; MCH 26.5 pg (27.0-32.0); MCHC 31.8 g/dL (32.0-37.0); MCV 83.2 FL (80.0-97.0); Mean Platelet Volume 11.2 FL (9.5-12.2); Monocytes # (A) 0.32 X 10*3/uL (0.20-1.00); Monocytes % (A) 6.4 %; NRBC Per 100 WBC 0 X 10*3/uL (0.00-0.01); Neutrophils # (A) 2.85 X 10*3/uL (1.80-7.70); Platelet Count 310 X 10*3/uL (140-440); RBC 4.53 X 10*6/uL (4.10-5.20); RDW 14.1 % (11.5-14.5)
[2024-02-06 16:09] LABS: % Iron Saturation 19.21 (12.00-45.00); ALT 24 U/L (8-44); AST 20 U/L (13-35); Albumin 4.5 g/dL (3.8-4.9); Albumin/Globulin Ratio 1.61 Ratio (1.60-3.17); Alkaline Phosphatase 68 U/L (41-126); BUN/Creat Ratio 18.43 Ratio (12.00-20.00); Blood Urea Nitrogen 12.9 mg/dL (9.0-27.0); Calcium 9.6 mg/dL (8.7-10.3); Carbon Dioxide 26.6 mmol/L (21.6-31.8); Chloride 104 mmol/L (96-109); Chol/HDL Ratio 3.87 Ratio; Ferritin 9.6 ng/mL (10.0-291.0); Globulin 2.8 g/dL (1.6-3.3); Glucose 97 mg/dL (70-110); Iron 92 UG/DL (50-170); LDL Cholesterol,Calculated 82.7 mg/dL (0.0-131.0); Potassium 4.3 mmol/L (3.5-5.5); Sodium 140 mmol/L (135-145); Total Bilirubin 0.3 mg/dL (0.3-1.2); Total Iron Binding Capacity 479 UG/DL (228-460); Total Protein 7.3 g/dL (6.2-8.2)
[2024-02-06 16:29] LABS: T4, Free (Free Thyroxine) 0.73 ng/dL (0.80-1.80)
[2024-02-06 16:35] LABS: Follicle Stimulating Hormone 4.9 mIU/mL; Luteinizing Hormone 7.2 mIU/mL
== END | disposition home or self-care (01) ==
LOC: LABWHC1 08:55
PROVIDERS: ATTEND Family Medicine
DX: E11.9 Type 2 diabetes mellitus without complications (principal); E03.9 Hypothyroidism, unspecified; E55.9 Vitamin D deficiency, unspecified; E61.1 Iron deficiency; Z86.32 Personal history of gestational diabetes
CPT/HCPCS: 36415; 80053; 80061; 82607; 82728; 83001; 83002; 83036; 83540; 83550; 84144; 84403; 84439; 84443; 84481; 84482; 85025